=== PATIENT | male | born 1970 | race African-American/Black ===

== ENCOUNTER 2016-08-10 15:49 | Emergency (ER) | payer OTHER ==
[~2016-08-10] VITALS: Ht 172.7 cm; Wt 91.6 kg
--- NOTE | 2016-08-10 16:50 | ED GENERAL ADULT ---
History of Present Illness General Chief Complaint: Abdominal Pain/Flank Pain Stated Complaint: LEFT FLANK PAIN Source: patient Exam Limitations: no limitations Vital Signs & Intake/Output Vital Signs & Intake/Output Vital Signs Date Time Temp Pulse Resp B/P Pulse O2 O2 Flow FiO2 Ox Delivery Rate 08/10 1810 97.1 88 18 146/72 98 Room Air 08/10 1552 98.2 97 16 154/105 95 Room Air Reconcile Medications Adalimumab (Humira Pen) 40 MG/0.8 ML PEN.IJ.KIT 1 SYR SC Q2W RA (Reported) Benzonatate 100 MG CAPSULE 1 CAP PO TID COUGH (Reported) Brompheniramine/Pseudoephed/Dm (Bromfed Dm Cough Syrup) 2 MG-30 MG-10 MG/5 ML SYRUP 5-10 ML PO Q4-6 PRN PRN cough Famotidine 40 MG TABLET 1 TAB PO BID GI (Reported) Folic Acid 1 MG TABLET 2 TAB PO DAILY SUPPLEMENT (Reported) Hydrocodone/Chlorphen P-Stirex (Hydrocodone-Chlorphen ER Susp) 10 MG-8 MG/5 ML KENDRA.ER.12H 5 ML PO PRN COUGH (Reported) Methotrexate 2.5 MG TABLET 8 TAB PO QTUES RA (Reported) Multivitamin (Multi-Day Vitamins) 1 EACH TABLET 1 TAB PO DAILY SUPPLEMENT ( Reported) Naproxen 375 MG TABLET 1 TAB PO BID RA (Reported) with food Oxycodone HCl/Acetaminophen (Percocet 5-325 MG Tablet) 5 MG-325 MG TABLET 1-2 TAB PO Q6P PRN pain Prednisone 1 MG TABLET 3 TAB PO DAILY RA (Reported) Triage Note: PT STATES HE HAS A COUGH AND STATES WHEN HE COUGHED HE FELT SOMETHING POP ON HIS LEFT SIDE. Triage Nurses Notes Reviewed? yes Onset: Abrupt Duration: minute(s):, constant, continues in ED Timing: single episode today Severity: moderate, severe No Modifying Factors: none HPI: 46-year-old male comes into emergency room with complaints of severe left-sided rib pain after coughing in the car. Patient reports she's had a cough for the last couple weeks. Patient reports that he was coughing uncontrollably and felt a pop in his left side. Sharp pain. Hurts with any type of range of motion. Hurts to deep breath. Denies any other associated symptoms. Patient reports that he was given Mucinex for his cough a couple weeks ago by his primary doctor (ESTEFANI MILLER) Allergies Coded Allergies: NO KNOWN ALLERGIES (08/10/16) (REGINA FERGUSON,RICHARD) Past History Travel History Traveled to [place] past 21 day No Medical History Any Pertinent Medical History? see below for history Musculoskeletal: rheumatoid arthritis Surgical History Surgical History: non-contributory Psychosocial History What is your primary language Omani Tobacco Use: Never used ETOH Use: denies use Illicit Drug Use: denies illicit drug use Family History Hx Contributory? No (ESTEFANI MILLER) Review of Systems Review of Systems Constitutional: Reports: no symptoms. EENTM: Reports: no symptoms. Respiratory: Reports: see HPI. Cardiovascular: Reports: no symptoms. GI: Reports: no symptoms. Genitourinary: Reports: no symptoms. Musculoskeletal: Reports: see HPI. Skin: Reports: no symptoms. Neurological/Psychological: Reports: no symptoms. Hematologic/Endocrine: Reports: no symptoms. Immunologic/Allergic: Reports: no symptoms. All Other Systems: Reviewed and Negative (ESTEFANI MILLER) Physical Exam Physical Exam General Appearance: well developed/nourished, no apparent distress, alert, awake Head: atraumatic, normal appearance Eyes: Bilateral: normal appearance, EOMI. Ears, Nose, Throat: normal pharynx, normal ENT inspection Neck: normal inspection, full range of motion Respiratory: normal breath sounds, no respiratory distress, chest wall tenderness left side Cardiovascular: regular rate/rhythm Gastrointestinal: normal bowel sounds, soft, non-tender Back: normal inspection Extremities: normal inspection, normal range of motion Neurologic/Psych: awake, alert, oriented x 3, normal gait, normal mood/affect Skin: intact, normal color Core Measures ACS in differential dx? No CVA/TIA Diagnosis: No Severe Sepsis Present: No Septic Shock Present: No (ESTEFANI MILLER) Progress Differential Diagnoses I considered the following diagnoses in my evaluation of the patient: Chest wall contusion, rib fracture, pneumothorax, intercostal muscle tear, Plan of Care: Orders Procedure Date/time Status XRY-RIBS UNILATERAL-LEFT 08/10 880 Active Diagnostic Imaging: Viewed by Me: Radiology Read. Discussed w/RAD: Radiology Read. Radiology Impression: EXAM TYPE: RAD - XRY-RIBS UNILATERAL-LEFT EXAMINATION: XR RIBS, LEFT CLINICAL INFORMATION: Pain. COMPARISON: None TECHNIQUE: 4 views FINDINGS: Lungs are notable for minor increased markings left base likely atelectasis. No consolidation, pneumothorax, or pleural effusion. The cardiomediastinal silhouette and pulmonary vasculature are normal. Osseous structures are unremarkable. Ribs are intact. No fractures are identified. IMPRESSION: No rib deformity. DICTATED BY: ANNABELLA MARIE MD DATE/TIME DICTATED:10/21 DEPOT AGENT:MANAN DATE/TIME TRANSCRIBED:08/10/161750 Initial ED EKG: none (TYRON ARMENDARIZ,ESTEFANI) Departure Departure Disposition: HOME OR SELF CARE Condition: Stable Clinical Impression Primary Impression: Intercostal muscle strain Referrals: PATIENT HAS NO PRIMARY CARE DR (PCP/Family) Additional Instructions: Take Percocet and Bromfed as prescribed. Follow-up with your primary care doctor. Return if any concerns worsening symptoms. Please go over all results of today's visit with your primary care doctor. Contact your primary care doctor to let them know you were here in the emergency room. There may be nonspecific findings which may not be related to your visit today here in the emergency room but may require further evaluation and chronic monitoring by your primary care doctor. If you had a laceration today the chance of foreign body always remains. You should follow-up with your primary care doctor for recheck in 3-5 days for a wound check. If you had an x-ray done there is a chance that a fracture could have been missed on initial read and you should follow-up with your primary care doctor for repeat x-rays if symptoms persist. If your blood pressure was elevated here in the emergency room please have rechecked by her primary care doctor within the next 48 hours by your primary care doctor. If you were prescribed a narcotic here in the emergency room or any type of controlled substances you're not allowed to drive while taking this medication or operate any type of heavy machinery. Narcotics can make you feel lightheaded dizziness nausea and can cause constipation. 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 Thank you for choosing [facility] emergency room. Please return to the emergency room immediately if you have any other concerns worsening of symptoms. Departure Forms: Customer Survey General Discharge Information Prescriptions: Current Visit Scripts Oxycodone HCl/Acetaminophen (Percocet 5-325 MG Tablet) 1-2 TAB PO Q6P PRN pain #15 TAB Brompheniramine/Pseudoephed/Dm (Bromfed Dm Cough Syrup) 5-10 ML PO Q4-6 PRN PRN cough #120 ML Comments 08/10/2016 7:31:50 PM Patient clinically looks well. Patient is nontoxic-appearing. Patient is in no apparent distress. Pain is reproducible. Pain is worse with range of motion. Symptoms are consistent with muscle strain/tear from coughing excessively. Patient given medication to go home with for the cough and the pain. Follow-up with primary care doctor. Return if any other concerns worsening symptoms. (ESTEFANI MILLER) PA/CUSHION BUILDER Co-Sign Statement Statement: ED Attending supervision documentation- [] I saw and evaluated the patient. I have also reviewed all the pertinent lab results and diagnostic results. I agree with the findings and the plan of care as documented in the PA's/CUSHION BUILDER's documentation. [X] I have reviewed the ED Record and agree with the PA's/CUSHION BUILDER's documentation. [] Additions or exceptions (if any) to the PAs/CUSHION BUILDER's note and plan are summarized below: [] (REGINA FERGUSON,RICHARD) Critical Care Note Critical Care Note Critical Care Time: non-applicable (ESTEFANI MILLER)
[2016-08-10] MEDS ORDERED: HUMIRA PEN40 MG/0.8 SC (16:53)
[2016-08-10] MEDS ORDERED: PREDNISONE1 MG PO (16:54)
[2016-08-10] MEDS ORDERED: HYDROCODONE-CH115 ML PO (16:54)
[2016-08-10] MEDS ORDERED: BENZONATATE100 M1 PO (16:54)
[2016-08-10] MEDS ORDERED: FAMOTIDINE40 M1 PO (16:55)
[2016-08-10] MEDS ORDERED: METHOTREXATE2.5 M2 PO (16:55)
[2016-08-10] MEDS ORDERED: FOLIC ACID1 M1 PO (16:55)
[2016-08-10] MEDS ORDERED: MULTI-DAY VITA1 EACH PO (16:56)
[2016-08-10] MEDS ORDERED: NAPROXEN375 M2 PO (16:56)
--- NOTE | 2016-08-10 17:56 | RADIOLOGY REPORT ---
EXAMINATION: XR RIBS, LEFT CLINICAL INFORMATION: Pain. COMPARISON: None TECHNIQUE: 4 views FINDINGS: Lungs are notable for minor increased markings left base likely atelectasis. No consolidation, pneumothorax, or pleural effusion. The cardiomediastinal silhouette and pulmonary vasculature are normal. Osseous structures are unremarkable. Ribs are intact. No fractures are identified. IMPRESSION: No rib deformity.
[2016-08-10] MEDS ORDERED: BROMFED DM COU118 M1 PO (18:01)
[2016-08-10] MEDS ORDERED: PERCOCET 5-3251 EACH PO (18:01)
[2016-08-10 18:10] VITALS: BP 146/72
== END 2016-08-10 18:10 ==
LOC: ERH 15:49
DX: S29.011A Strain of muscle and tendon of front wall of thorax, initial encounter (principal); X58.XXXA Exposure to other specified factors, initial encounter
CPT/HCPCS: 71100-LT

== ENCOUNTER 2016-08-16 15:19 | Emergency (ER) | payer OTHER ==
[~2016-08-16] VITALS: Ht 175.3 cm; Wt 91.6 kg
[~2016-08-16 15:19] MED LIST: BENZONATATE100 M1 PO; BROMFED DM COU118 M1 PO; FAMOTIDINE40 M1 PO; FOLIC ACID1 M1 PO; HUMIRA PEN40 MG/0.8 SC; HYDROCODONE-CH115 ML PO; METHOTREXATE2.5 M2 PO; MULTI-DAY VITA1 EACH PO; NAPROXEN375 M2 PO; PERCOCET 5-3251 EACH PO; PREDNISONE1 MG PO
[2016-08-16 15:27] VITALS: BP 163/95
--- NOTE | 2016-08-16 16:56 | ED DYSPNEA/ASTHMA COMPLAINT ---
History of Present Illness General Chief Complaint: General Adult Stated Complaint: SEEN LAST FRIDAY FOR RIB PAIN MO BETTER Source: patient, old records Exam Limitations: no limitations Vital Signs & Intake/Output Vital Signs & Intake/Output Vital Signs Date Time Temp Pulse Resp B/P Pulse O2 O2 Flow FiO2 Ox Delivery Rate 08/16 1527 96.4 91 20 163/95 93 Room Air Allergies Coded Allergies: NO KNOWN ALLERGIES (08/16/16) Reconcile Medications Adalimumab (Humira Pen) 40 MG/0.8 ML PEN.IJ.KIT 1 SYR SC Q2W RA (Reported) Benzonatate 100 MG CAPSULE 1 CAP PO TID COUGH (Reported) Brompheniramine/Pseudoephed/Dm (Bromfed Dm Cough Syrup) 2 MG-30 MG-10 MG/5 ML SYRUP 5-10 ML PO Q4-6 PRN PRN cough Famotidine 40 MG TABLET 1 TAB PO BID GI (Reported) Folic Acid 1 MG TABLET 2 TAB PO DAILY SUPPLEMENT (Reported) Hydrocodone/Chlorphen P-Stirex (Hydrocodone-Chlorphen ER Susp) 10 MG-8 MG/5 ML KENDRA.ER.12H 5 ML PO PRN COUGH (Reported) Ketorolac Tromethamine 10 MG TABLET 1 TAB PO TID PRN pain Methotrexate 2.5 MG TABLET 8 TAB PO QTUES RA (Reported) Multivitamin (Multi-Day Vitamins) 1 EACH TABLET 1 TAB PO DAILY SUPPLEMENT ( Reported) Naproxen 375 MG TABLET 1 TAB PO BID RA (Reported) with food Prednisone 1 MG TABLET 3 TAB PO DAILY RA (Reported) Triage Note: TRIAGE: PT TO ER C/C L RIB/SIDE PAIN SINCE LAST AFTER INJURING IT DURING "A BAD COUGH". STATES IT WAS GETTING BETTER "BECAUSE THEY PRESCRIBED A PAIN KILLER", RAN OUT OF SAME YESTERDAY. STATES RE-AGGRAVATED IT WITH A BAD COUGH ON FRIDAY. Triage Nurses Notes Reviewed? yes Onset: Abrupt Duration: constant Timing: recent history Severity: severe HPI: Patient is a 46-year-old male who presents to emergency room with persistent left-sided rib pain. Patient was evaluated at [place] emergency room 6 days ago for similar complaints in which she was noted the patient while coughing uncontrollably he suddenly heard a pop the left side of his ribs. Patient received x-rays with unremarkable acute findings. Patient was given Bromfed and Percocet for his symptoms at the time Patient states that he was improving however 2 days ago while coughing again patient exacerbated his left-sided localized rib pain. Denies any shortness of breath. Denies any trauma Denies any hemoptysis denies any fever chills. No smoking history. Patient states that deep inhalation and lumbar spine movements make worse. (ALEXUS CULLEN) Past History Travel History Traveled to [place] past 21 day No Medical History Any Pertinent Medical History? see below for history Neurological: NONE EENT: NONE Cardiovascular: NONE Respiratory: NONE Gastrointestinal: NONE Hepatic: NONE Renal: NONE Musculoskeletal: rheumatoid arthritis Psychiatric: NONE Endocrine: NONE Blood Disorders: NONE Cancer(s): NONE PRESSURE DISPATCHER/Reproductive: NONE Surgical History Surgical History: non-contributory Psychosocial History What is your primary language Yoruba Tobacco Use: Never used ETOH Use: denies use Illicit Drug Use: denies illicit drug use Family History Hx Contributory? No (ALEXUS CULLEN) Review of Systems Review of Systems Constitutional: Reports: no symptoms. EENTM: Reports: no symptoms. Respiratory: Reports: see HPI. Cardiovascular: Reports: see HPI. GI: Reports: no symptoms. Genitourinary: Reports: no symptoms. Musculoskeletal: Reports: no symptoms. Skin: Reports: no symptoms. Neurological/Psychological: Reports: no symptoms. Hematologic/Endocrine: Reports: no symptoms. Immunologic/Allergic: Reports: no symptoms. All Other Systems: Reviewed and Negative (ALEXUS CULLEN) Physical Exam Physical Exam General Appearance: no apparent distress, alert, comfortable Respiratory: normal breath sounds, no respiratory distress Comments: Well-developed well-nourished person in no acute distress HEENT: Normal EENT exam, Neck: Supple, no lymphadenopathy, normal range of motion without pain or tenderness Back: Nontender, no CVA tenderness. Cardiovascular: Regular rate and rhythms no murmurs rubs or gallops, normal JVP Respiratory: . No respiratory distress.breath sounds clear to auscultation bilaterally Left lateral and anterior rib normal inspection tenderness upon palpation Abdomen: Soft, nontender nondistended, no appreciable organomegaly. Normal bowel sounds. No ascites Extremity: No edema, no calf tenderness to palpation, normal and equal pulses. Neuro: Alert oriented x3, motor sensory normal, Skin: No appreciable rash on exposed skin, skin is warm and dry. Psych: Mood and affect is normal, memory and judgment is normal. Core Measures ACS in differential dx? No Severe Sepsis Present: No Septic Shock Present: No (ALEXUS CULLEN) Progress Differential Diagnosis: asthma, AMI, bronchitis, costochondritis, CHF, COPD, musculoskeletal pain, pericarditis, pulmonary embolism, pneumonia, pneumothorax, rib fracture, unstable angina, COSTOCHONDRITIS Plan of Care: Current Medications Sig/Adela Start time Last Medication Dose Stop Time Status Admin Ketorolac 30 MG ONCE ONE 08/16 1714 AC Tromethamine 08/16 1715 (Toradol) Patient currently is in no apparent distress clear lungs to auscultation denies any fever chills or signs of infection. Patient's oxygen saturation was 100% room air no respiratory distress. Patient will be treated for concerns of costochondritis. (ALEXUS CULLEN) Initial ED EKG: none (ALEXUS CULLEN) Departure Departure Disposition: HOME OR SELF CARE Condition: Stable Clinical Impression Primary Impression: Rib pain on left side Secondary Impressions: Costochondral pain Referrals: PATIENT HAS NO PRIMARY CARE DR (PCP/Family) Additional Instructions: As discussed begin icing the area directly 20 minutes every 2 hours for pain and inflammation. Begin the prescription of ketorolac for pain and inflammation. If symptoms worsen return to emergency room. Follow-up with your primary care doctor in 1 week if no better. Prescription is waiting at your [facility] pharmacy Departure Forms: Customer Survey General Discharge Information Prescriptions: Current Visit Scripts Ketorolac Tromethamine 1 TAB PO TID PRN pain #15 TAB (ALEXUS CULLEN) PA/MARKETING AND PROMOTIONS MANAGER Co-Sign Statement Statement: ED Attending supervision documentation- [] I saw and evaluated the patient. I have also reviewed all the pertinent lab results and diagnostic results. I agree with the findings and the plan of care as documented in the PA's/MARKETING AND PROMOTIONS MANAGER's documentation. [X] I have reviewed the ED Record and agree with the PA's/MARKETING AND PROMOTIONS MANAGER's documentation. [] Additions or exceptions (if any) to the PAs/MARKETING AND PROMOTIONS MANAGER's note and plan are summarized below: [] (REGINA FERGUSON,RICHARD) Critical Care Note Critical Care Note Critical Care Time: non-applicable (ALEXUS CULLEN)
[2016-08-16] MEDS ORDERED: KETOROLAC TROME10 M1 PO (17:04)
== END 2016-08-16 17:27 ==
LOC: ERH 15:19
DX: M94.0 Chondrocostal junction syndrome [Tietze] (principal)
CPT/HCPCS: 96374; J1885